=== PATIENT | male | born 1950 | race Caucasian/White ===

== ENCOUNTER 2017-08-12 01:57 | Inpatient (IN) ==
[2017-08-12] MEDS ORDERED: ACETAMINOPHEN 325 MG TABLET PO PRN (02:38)
[2017-08-12] MEDS ORDERED: ONDANSETRON 4 MG/2 ML VIAL IV PRN ×2 (02:38→13:31)
[2017-08-12] MEDS ORDERED: HYDROmorphone 2 MG/1 ML VIAL IV PRN (02:38)
[2017-08-12] MEDS ORDERED: ONDANSETRON 4 MG/2 ML VIAL ONE ×3 (03:47→13:37)
[2017-08-12] MEDS ORDERED: HYDROmorphone 2 MG/1 ML VIAL ONE ×2 (03:48→13:22)
[2017-08-12] MEDS: cefOXitin 2,000 MG in SYRINGE 1 EACH IV SCH ×3 (04:28→15:43)
[2017-08-12] MEDS: DEXTROSE 5% LACTATED RINGERS 1,000 ML IV SCH ×4 (04:35→23:14)
[2017-08-12 08:04] LABS: Basophils % 0.3 % (0.0-0.8); Eosinophils # 0.1 10*3/uL (0.0-0.87); Eosinophils % 1.2 % (0.00-10.9); Hemoglobin 10.7 GM/DL (14.0-18.0); Immature Granulocytes % 0.2 %; Immature Granulocytes Absolute 0.01 #; Lymphocytes # 1.3 10*3/uL (1.4-4.0); Lymphocytes % 21.5 % (21.2-54.2); Mean Corpuscular HGB Conc 31.5 GM/DL (32-36); Mean Corpuscular Hemoglobin 26 PG (27-34); Mean Platelet Volume 11.4 FL (9.6-12.0); Monocytes # 0.8 10*3/uL (0.11-0.8); Monocytes % 13.9 % (1.7-12.7); Neutrophils # 3.8 10*3/uL (1.4-7.4); Neutrophils % 62.9 % (38.7-73.9); Platelet Count 259 T/CUMM (130-400); Red Blood Count 4.05 MC/CUMM (3.8-5.5); Red Cell Distribution Width 17.2 % (9.3-17.3)
[2017-08-12 08:31] LABS: Band Neutrophils 5 % (0-10); Hypochromasia 1+; Lymphocytes 28 % (20-55); Microcytosis 1+; Platelet Estimate Normal; Segmented Neutrophils 61 % (50-85); Total Cells Counted 100
[2017-08-12 08:43] LABS: Calcium 8.5 MG/DL (8.5-10.1); Osmolality,Calculated 279.3 MOS/KG (273-304); Potassium 3.2 MMOL/L (3.5-5.1)
[2017-08-12] MEDS ORDERED: PANTOPRAZOLE 40 MG TABLET PO SCH (09:00)
[2017-08-12] MEDS: ENOXAPARIN 40 MG/0.4 ML SYRINGE SUBCUT SCH (09:04)
[2017-08-12] MEDS: PANTOPRAZOLE 40 MG VIAL IV SCH (09:04)
[2017-08-12] MEDS: HYDROmorphone 2 MG/1 ML VIAL IV PRN ×7 (09:05→21:00)
[2017-08-12] MEDS ORDERED: LIDOCAINE 2%/EPI 20 ML VIAL ONE (11:13)
[2017-08-12] MEDS ORDERED: SEVOFLURANE 1 UNIT/15 MINUTE INH ONE (13:37)
[2017-08-12] MEDS ORDERED: ETOMIDATE 40 MG/20 ML VIAL IV ONE (13:37)
[2017-08-12] MEDS ORDERED: LACTATED RINGERS 1,000 ML IV ONE ×2 (13:37→18:39)
[2017-08-12] MEDS ORDERED: fentaNYL 100 MCG/2 ML VIAL ONE (13:37)
[2017-08-12] MEDS ORDERED: MIDAZOLAM 2 MG/2 ML VIAL ONE (13:37)
[2017-08-12 13:43] LABS: Apearance,Urine CLEAR (Clear); Bilirubin,Urine Negative (Negative); Blood, Urine Negative (Negative); Glucose,Urine (UA) Negative (Negative); Ketones,Urine Negative (Negative); Nitrite,Urine Negative (Negative); Protein,Urine Negative; RBC,Urine <1 /HPF (0-4); Urine Color Yellow (Yellow); Urine Specific Gravity 1.013 (1.001-1.035); Urine Urobilinogen < 2.0 EU/DL (0.2-1.0); WBC,Urine <1 /HPF (0-6)
[2017-08-12] MEDS ORDERED: NEOSTIGMINE 10 MG/10 ML VIAL ONE (13:45)
[2017-08-12] MEDS ORDERED: MEPERIDINE 25 MG/1 ML VIAL ONE (14:10)
[2017-08-12] MEDS: MEPERIDINE 25 MG/1 ML VIAL IV PRN ×2 (14:10→15:42)
[2017-08-12 17:16] LABS: Hematocrit 39.5 VOL% (42.0-52.0); Hemoglobin 12.7 GM/DL (14.0-18.0)
[2017-08-12 17:50] LABS: Troponin I Only 0.029 NG/ML (0.00-0.045)
[2017-08-13] MEDS: HYDROmorphone 2 MG/1 ML VIAL IV PRN ×6 (01:15→21:14)
[2017-08-13] MEDS: cefOXitin 2,000 MG in SYRINGE 1 EACH IV SCH ×5 (04:15→21:18)
[2017-08-13] MEDS: DEXTROSE 5% LACTATED RINGERS 1,000 ML IV SCH ×3 (07:18→23:54)
[2017-08-13 08:29] LABS: Basophils % 0.4 % (0.0-0.8); Hematocrit 39.9 VOL% (42.0-52.0); Hemoglobin 12.8 GM/DL (14.0-18.0); Immature Granulocytes % 0.4 %; Immature Granulocytes Absolute 0.03 #; Lymphocytes # 0.9 10*3/uL (1.4-4.0); Lymphocytes % 13.2 % (21.2-54.2); Mean Corpuscular HGB Conc 32.1 GM/DL (32-36); Mean Corpuscular Hemoglobin 27 PG (27-34); Mean Corpuscular Volume 83.8 FL (87-102); Mean Platelet Volume 11.6 FL (9.6-12.0); Monocytes % 14.5 % (1.7-12.7); Neutrophils # 4.9 10*3/uL (1.4-7.4); Neutrophils % 71.5 % (38.7-73.9); Platelet Count 302 T/CUMM (130-400); Red Blood Count 4.76 MC/CUMM (3.8-5.5); Red Cell Distribution Width 17.7 % (9.3-17.3); White Blood Count 6.9 T/CUMM (4-12)
[2017-08-13 08:50] LABS: Band Neutrophils 13 % (0-10); Hypochromasia 1+; Lymphocytes 17 % (20-55); Microcytosis 1+; Segmented Neutrophils 56 % (50-85); Total Cells Counted 100
[2017-08-13 08:51] LABS: Ovalocytes Slight; Platelet Estimate Normal
[2017-08-13 08:56] LABS: Albumin 2.3 G/DL (3.4-5.0); Bilirubin,Total 1.2 MG/DL (0.2-1.0); Calcium 8.1 MG/DL (8.5-10.1); Osmolality,Calculated 280.3 MOS/KG (273-304); Potassium 4.1 MMOL/L (3.5-5.1); Total Protein 5.1 G/DL (6.4-8.3)
[2017-08-13] MEDS: ENOXAPARIN 40 MG/0.4 ML SYRINGE SUBCUT SCH (09:10)
[2017-08-13] MEDS: PANTOPRAZOLE 40 MG VIAL IV SCH (09:11)
[2017-08-14] MEDS: HYDROmorphone 2 MG/1 ML VIAL IV PRN ×5 (01:10→18:16)
[2017-08-14] MEDS: cefOXitin 2,000 MG in SYRINGE 1 EACH IV SCH ×4 (05:19→21:31)
[2017-08-14] MEDS: DEXTROSE 5% LACTATED RINGERS 1,000 ML IV SCH ×2 (09:00→11:30)
[2017-08-14] MEDS: ENOXAPARIN 40 MG/0.4 ML SYRINGE SUBCUT SCH ×2 (09:00→18:15)
[2017-08-14] MEDS: PANTOPRAZOLE 40 MG VIAL IV SCH (09:02)
[2017-08-14 09:10] LABS: Basophils % 0.2 % (0.0-0.8); Red Cell Distribution Width 17.3 % (9.3-17.3)
[2017-08-14 09:17] LABS: Eosinophils % 0.2 % (0.00-10.9); Hematocrit 33.1 VOL% (42.0-52.0); Immature Granulocytes % 0.4 %; Immature Granulocytes Absolute 0.03 #; Lymphocytes # 0.9 10*3/uL (1.4-4.0); Lymphocytes % 11.6 % (21.2-54.2); Mean Corpuscular HGB Conc 31.7 GM/DL (32-36); Mean Corpuscular Hemoglobin 27 PG (27-34); Mean Corpuscular Volume 84.9 FL (87-102); Monocytes # 0.9 10*3/uL (0.11-0.8); Monocytes % 11.4 % (1.7-12.7); Neutrophils # 6.1 10*3/uL (1.4-7.4); Neutrophils % 76.2 % (38.7-73.9)
[2017-08-14 09:18] LABS: Hemoglobin 10.5 GM/DL (14.0-18.0); Platelet Count 225 T/CUMM (130-400)
[2017-08-14 09:32] LABS: Band Neutrophils 7 % (0-10); Eosinophils 1 % (0-10); Hypochromasia 1+; Lymphocytes 16 % (20-55); Metamyelocytes 1 %; Segmented Neutrophils 72 % (50-85); Total Cells Counted 100
[2017-08-14 09:33] LABS: Microcytosis 1+; Ovalocytes Slight; Platelet Estimate Normal
[2017-08-14 09:37] LABS: Calcium 7.8 MG/DL (8.5-10.1); Osmolality,Calculated 279.3 MOS/KG (273-304); Potassium 2.9 MMOL/L (3.5-5.1)
[2017-08-15] MEDS: DEXTROSE 5% LACTATED RINGERS 1,000 ML IV SCH ×4 (01:09→17:08)
[2017-08-15] MEDS: cefOXitin 2,000 MG in SYRINGE 1 EACH IV SCH ×4 (03:22→21:18)
[2017-08-15] MEDS: ENOXAPARIN 40 MG/0.4 ML SYRINGE SUBCUT SCH (09:16)
[2017-08-15] MEDS: PANTOPRAZOLE 40 MG VIAL IV SCH (09:17)
[2017-08-15] MEDS: HYDROmorphone 2 MG/1 ML VIAL IV PRN ×3 (09:26→20:15)
[2017-08-16] MEDS: DEXTROSE 5% LACTATED RINGERS 1,000 ML IV SCH ×4 (00:46→21:22)
[2017-08-16] MEDS: cefOXitin 2,000 MG in SYRINGE 1 EACH IV SCH ×4 (03:38→21:12)
[2017-08-16] MEDS: PANTOPRAZOLE 40 MG VIAL IV SCH (09:09)
[2017-08-16] MEDS: ENOXAPARIN 40 MG/0.4 ML SYRINGE SUBCUT SCH (09:10)
[2017-08-16] MEDS: VALSARTAN/HCTZ 160-12.5 MG TABLET PO SCH (09:43)
[2017-08-16] MEDS: ATORVASTATIN 10 MG TABLET PO SCH (09:43)
[2017-08-16] MEDS: CARVEDILOL 12.5 MG TABLET PO SCH ×2 (09:43→21:11)
[2017-08-16] MEDS: POTASSIUM CHLORIDE 10 MEQ TABLET PO SCH (09:43)
[2017-08-16] MEDS: ZALEPLON 5 MG CAPSULE PO SCH (21:11)
[2017-08-17 02:21] LABS: Basophils % 0.2 % (0.0-0.8); Eosinophils # 0.2 10*3/uL (0.0-0.87); Eosinophils % 3.8 % (0.00-10.9); Hematocrit 30.3 VOL% (42.0-52.0); Hemoglobin 9.7 GM/DL (14.0-18.0); Immature Granulocytes Absolute 0.06 #; Lymphocytes # 0.9 10*3/uL (1.4-4.0); Lymphocytes % 14.2 % (21.2-54.2); Mean Corpuscular Hemoglobin 26 PG (27-34); Mean Corpuscular Volume 82.3 FL (87-102); Mean Platelet Volume 11.3 FL (9.6-12.0); Monocytes # 0.5 10*3/uL (0.11-0.8); Monocytes % 8.1 % (1.7-12.7); Neutrophils # 4.6 10*3/uL (1.4-7.4); Neutrophils % 72.7 % (38.7-73.9); Platelet Count 236 T/CUMM (130-400); Red Blood Count 3.68 MC/CUMM (3.8-5.5); Red Cell Distribution Width 16.8 % (9.3-17.3); White Blood Count 6.3 T/CUMM (4-12)
[2017-08-17 03:08] LABS: Calcium 8.1 MG/DL (8.5-10.1); Osmolality,Calculated 279.1 MOS/KG (273-304); Potassium 2.8 MMOL/L (3.5-5.1)
[2017-08-17 03:19] LABS: Anisocytosis 1+; Hypochromasia Slight; Platelet Estimate Normal
[2017-08-17] MEDS: cefOXitin 2,000 MG in SYRINGE 1 EACH IV SCH ×4 (03:58→21:45)
[2017-08-17] MEDS: VALSARTAN/HCTZ 160-12.5 MG TABLET PO SCH (08:39)
[2017-08-17] MEDS: ATORVASTATIN 10 MG TABLET PO SCH (08:40)
[2017-08-17] MEDS: ENOXAPARIN 40 MG/0.4 ML SYRINGE SUBCUT SCH (08:40)
[2017-08-17] MEDS: POTASSIUM CHLORIDE 10 MEQ TABLET PO SCH (08:40)
[2017-08-17] MEDS: CARVEDILOL 12.5 MG TABLET PO SCH ×2 (08:40→21:45)
[2017-08-17] MEDS: PANTOPRAZOLE 40 MG VIAL IV SCH (08:40)
[2017-08-17] MEDS ORDERED: POTASSIUM CHLORIDE RIDER 10 MEQ in PREMIX 1 EACH IV PRN (09:51)
[2017-08-17] MEDS ORDERED: POTASSIUM CHLORIDE INJ 50 MEQ in SODIUM CHLORIDE 0.9% 500 ML IV ONE (11:00)
[2017-08-17] MEDS: DEXTROSE 5% LACTATED RINGERS 1,000 ML IV SCH (16:51)
[2017-08-17] MEDS: ZALEPLON 5 MG CAPSULE PO SCH (21:45)
[2017-08-18] MEDS: cefOXitin 2,000 MG in SYRINGE 1 EACH IV SCH ×4 (04:13→21:02)
[2017-08-18] MEDS ORDERED: POTASSIUM CHLORIDE INJ 50 MEQ in SODIUM CHLORIDE 0.9% 500 ML IV ONE (08:30)
[2017-08-18] MEDS: CARVEDILOL 12.5 MG TABLET PO SCH ×2 (08:38→21:01)
[2017-08-18] MEDS: POTASSIUM CHLORIDE 10 MEQ TABLET PO SCH (08:38)
[2017-08-18] MEDS: ATORVASTATIN 10 MG TABLET PO SCH (08:38)
[2017-08-18] MEDS: ENOXAPARIN 40 MG/0.4 ML SYRINGE SUBCUT SCH (08:38)
[2017-08-18] MEDS: VALSARTAN/HCTZ 160-12.5 MG TABLET PO SCH (08:38)
[2017-08-18] MEDS: PANTOPRAZOLE 40 MG VIAL IV SCH (08:39)
[2017-08-18 12:01] LABS: 5-Hydroxyindoleacetic Acid, U 14 mg/24 h (<=8.0)
[2017-08-18] MEDS: DEXTROSE 5% LACTATED RINGERS 1,000 ML IV SCH (20:01)
[2017-08-18] MEDS: ZALEPLON 5 MG CAPSULE PO SCH (21:01)
[2017-08-19] MEDS: cefOXitin 2,000 MG in SYRINGE 1 EACH IV SCH ×4 (03:34→20:45)
[2017-08-19] MEDS ORDERED: MAGNESIUM SULF RIDER 4 GM in PREMIX 1 EACH IV PRN (09:19)
[2017-08-19] MEDS ORDERED: MAGNESIUM SULF RIDER 2 GM in PREMIX 1 EACH IV PRN (09:19)
[2017-08-19] MEDS: CARVEDILOL 12.5 MG TABLET PO SCH ×2 (09:24→20:45)
[2017-08-19] MEDS: POTASSIUM CHLORIDE 10 MEQ TABLET PO SCH (09:24)
[2017-08-19] MEDS: POTASSIUM CHLORIDE 20 MEQ TABLET PO PRN ×4 (09:24→14:57)
[2017-08-19] MEDS: ATORVASTATIN 10 MG TABLET PO SCH (09:24)
[2017-08-19] MEDS: PANTOPRAZOLE 40 MG VIAL IV SCH (09:25)
[2017-08-19] MEDS: VALSARTAN/HCTZ 160-12.5 MG TABLET PO SCH (09:27)
[2017-08-19] MEDS: ENOXAPARIN 40 MG/0.4 ML SYRINGE SUBCUT SCH (09:28)
[2017-08-19] MEDS: DEXTROSE 5% LACTATED RINGERS 1,000 ML IV SCH (16:26)
[2017-08-19] MEDS: ZALEPLON 5 MG CAPSULE PO SCH (20:45)
[2017-08-20] MEDS: DEXTROSE 5% LACTATED RINGERS 1,000 ML IV SCH (03:45)
[2017-08-20] MEDS: cefOXitin 2,000 MG in SYRINGE 1 EACH IV SCH ×3 (03:50→15:18)
[2017-08-20 05:55] LABS: Calcium 7.9 MG/DL (8.5-10.1); Potassium 3.6 MMOL/L (3.5-5.1)
[2017-08-20] MEDS: VALSARTAN/HCTZ 160-12.5 MG TABLET PO SCH (09:05)
[2017-08-20] MEDS: ATORVASTATIN 10 MG TABLET PO SCH (09:05)
[2017-08-20] MEDS: POTASSIUM CHLORIDE 20 MEQ TABLET PO PRN (09:06)
[2017-08-20] MEDS: PANTOPRAZOLE 40 MG VIAL IV SCH (09:06)
[2017-08-20] MEDS: ENOXAPARIN 40 MG/0.4 ML SYRINGE SUBCUT SCH (09:07)
[2017-08-20] MEDS: POTASSIUM CHLORIDE 10 MEQ TABLET PO SCH (11:26)
[2017-08-20] MEDS: CARVEDILOL 12.5 MG TABLET PO SCH (11:26)
[2017-08-20 11:56] VITALS: BP 128/83
== END 2017-08-20 16:15 | disposition home or self-care (01) | DRG 330 ==
LOC: EDUNIT# → EDBD → N.ED 01:57 → N.EDINP 02:38 → N.3E 03:04 → N.TELES 19:38
PROVIDERS: ADMIT Surgery; ATTEND Surgery

== ENCOUNTER 2021-12-13 05:46 | Inpatient (IN) ==
[2021-12-13] MEDS ORDERED: CLINDAMYCIN INJ 900 MG/50 ML PREMIX IV ONE (06:30)
[2021-12-13] MEDS ORDERED: LACTATED RINGERS 1,000 ML IV SCH (08:30)
[2021-12-13] MEDS ORDERED: OCTREOTIDE 500 MCG in SODIUM CHLORIDE 0.9% 100 ML IV ONE (08:30)
[2021-12-13] MEDS ORDERED: SUCCINYLCHOLINE 200 MG/10 ML VIAL ONE (11:19)
[2021-12-13] MEDS ORDERED: propofoL 200 MG/20 ML VIAL IV ONE (11:19)
[2021-12-13] MEDS ORDERED: fentaNYL 250 MCG/5 ML VIAL ONE (11:19)
[2021-12-13] MEDS ORDERED: LIDOCAINE 2% 5 ML VIAL ONE (11:19)
[2021-12-13] MEDS ORDERED: MIDAZOLAM 2 MG/2 ML VIAL ONE (11:19)
[2021-12-13] MEDS ORDERED: ROCURONIUM 50 MG/5 ML VIAL IV ONE (11:19)
[2021-12-13] MEDS ORDERED: BUPIVACAINE MPF 0.25% 30 ML VIAL ONE (11:25)
[2021-12-13] MEDS ORDERED: DEXAMETHASONE 4 MG/1 ML VIAL ONE (11:26)
[2021-12-13] MEDS ORDERED: ePHEDrine 50 MG/ML VIAL ONE (12:43)
[2021-12-13] MEDS ORDERED: LACTATED RINGERS 1,000 ML IV ONE (13:03)
[2021-12-13] MEDS ORDERED: TISSUE ADHESIVE 1 EACH APPLICATOR TOP ONE (13:06)
[2021-12-13] MEDS ORDERED: GLYCOPYRROLATE 0.4 MG/2 ML VIAL ONE (13:56)
[2021-12-13] MEDS ORDERED: NEOSTIGMINE 10 MG/10 ML VIAL ONE (13:57)
[2021-12-13] MEDS ORDERED: ACETAMINOPHEN 325 MG TABLET PO PRN (14:21)
[2021-12-13 14:43] LABS: Bilirubin,Urine Small mg/dL (Negative); Blood, Urine Negative (Negative); Glucose,Urine (UA) Negative (Negative); Ketones,Urine Negative (Negative); Nitrite,Urine Negative (Negative); Protein,Urine 30 mg/dL (Negative); Urine Appearance Clear (Clear); Urine Color Yellow (Yellow); Urine Specific Gravity 1.025 (1.001-1.035)
[2021-12-13 14:45] LABS: Hyaline Casts,Urine 1 /LPF (0-3)
[2021-12-13] MEDS ORDERED: ONDANSETRON 4 MG/2 ML VIAL ONE (14:48)
[2021-12-13] MEDS ORDERED: ONDANSETRON 4 MG/2 ML VIAL IV PRN (14:49)
[2021-12-13] MEDS: HYDROmorphone 1 MG/1 ML SYRINGE IV PRN ×7 (14:50→22:59)
[2021-12-13] MEDS: DEXTROSE 5% LACTATED RINGERS 1,000 ML IV SCH (18:00)
[2021-12-14] MEDS: DEXTROSE 5% LACTATED RINGERS 1,000 ML IV SCH ×3 (01:31→17:05)
[2021-12-14] MEDS: HYDROmorphone 1 MG/1 ML SYRINGE IV PRN ×6 (05:22→20:23)
[2021-12-14 05:26] LABS: Basophils % 0.1 % (0.0-0.8); Hematocrit 35.2 VOL% (42.0-52.0); Hemoglobin 11.9 GM/DL (14.0-18.0); Immature Granulocytes % 0.5 %; Immature Granulocytes Absolute 0.07 #; Lymphocytes # 0.4 10*3/uL (1.4-4.0); Lymphocytes % 2.9 % (21.2-54.2); Mean Corpuscular HGB Conc 33.8 GM/DL (32-36); Mean Corpuscular Volume 96.4 FL (87-102); Mean Platelet Volume 10.9 FL (9.6-12.0); Monocytes # 0.9 10*3/uL (0.11-0.8); Monocytes % 6.1 % (1.7-12.7); Neutrophils % 90.4 % (38.7-73.9); Platelet Count 177 T/CUMM (130-400); Red Blood Count 3.65 MC/CUMM (3.8-5.5); Red Cell Distribution Width 12.7 % (9.3-17.3); White Blood Count 14.6 T/CUMM (4-12)
[2021-12-14 05:45] LABS: Calcium 8.3 MG/DL (8.5-10.1); Osmolality,Calculated 285.1 MOS/KG (273-304); Potassium 3.8 MMOL/L (3.5-5.1)
[2021-12-14 05:49] LABS: Band Neutrophils 2 % (0-10); Platelet Estimate Adequate; Total Cells Counted 100
[2021-12-14] MEDS: PANTOPRAZOLE 40 MG TABLET PO SCH (08:23)
[2021-12-14] MEDS: ENOXAPARIN 40 MG/0.4 ML SYRINGE SUBCUT SCH (17:03)
[2021-12-14] MEDS: carvediloL 25 MG TABLET PO SCH (17:04)
[2021-12-15] MEDS: HYDROmorphone 1 MG/1 ML SYRINGE IV PRN ×6 (00:19→23:06)
[2021-12-15] MEDS: DEXTROSE 5% LACTATED RINGERS 1,000 ML IV SCH ×3 (00:20→20:04)
[2021-12-15 08:37] LABS: Basophils % 0.1 % (0.0-0.8); Eosinophils # 0.1 10*3/uL (0.0-0.87); Eosinophils % 0.5 % (0.00-10.9); Hematocrit 31.8 VOL% (42.0-52.0); Hemoglobin 10.5 GM/DL (14.0-18.0); Immature Granulocytes % 0.6 %; Immature Granulocytes Absolute 0.06 #; Lymphocytes # 0.4 10*3/uL (1.4-4.0); Lymphocytes % 4.1 % (21.2-54.2); Mean Corpuscular Volume 97.5 FL (87-102); Mean Platelet Volume 10.2 FL (9.6-12.0); Monocytes # 0.9 10*3/uL (0.11-0.8); Monocytes % 9.1 % (1.7-12.7); Neutrophils % 85.6 % (38.7-73.9); Platelet Count 153 T/CUMM (130-400); Red Blood Count 3.26 MC/CUMM (3.8-5.5); Red Cell Distribution Width 12.7 % (9.3-17.3)
[2021-12-15 08:56] LABS: Calcium 8.1 MG/DL (8.5-10.1); Osmolality,Calculated 281.3 MOS/KG (273-304); Potassium 3.5 MMOL/L (3.5-5.1)
[2021-12-15 08:57] LABS: Band Neutrophils 2 % (0-10); Eosinophils 1 % (0-10); Lymphocytes 6 % (20-55); Total Cells Counted 100
[2021-12-15 08:58] LABS: Macrocytosis Slight
[2021-12-15] MEDS ORDERED: MAGNESIUM SULF RIDER 2 GM/50 ML PREMIX IV PRN ×2 (09:22→10:06)
[2021-12-15] MEDS: carvediloL 25 MG TABLET PO SCH ×2 (09:29→17:15)
[2021-12-15] MEDS: POTASSIUM CHLORIDE 20 MEQ TABLET PO SCH (09:29)
[2021-12-15] MEDS: PANTOPRAZOLE 40 MG TABLET PO SCH (09:29)
[2021-12-15] MEDS: FUROSEMIDE 20 MG TABLET PO SCH (09:29)
[2021-12-15] MEDS ORDERED: MAGNESIUM SULF RIDER 4 GM/100 ML PREMIX IV PRN (10:06)
[2021-12-15] MEDS: ENOXAPARIN 40 MG/0.4 ML SYRINGE SUBCUT SCH (17:15)
[2021-12-15] MEDS: ZALEPLON 5 MG CAPSULE PO SCH (23:05)
[2021-12-16] MEDS: DEXTROSE 5% LACTATED RINGERS 1,000 ML IV SCH ×2 (00:58→15:46)
[2021-12-16] MEDS: POTASSIUM CHLORIDE 20 MEQ TABLET PO SCH (08:23)
[2021-12-16] MEDS: carvediloL 25 MG TABLET PO SCH ×2 (08:23→16:46)
[2021-12-16] MEDS: PANTOPRAZOLE 40 MG TABLET PO SCH (08:24)
[2021-12-16] MEDS: FUROSEMIDE 20 MG TABLET PO SCH (08:24)
[2021-12-16] MEDS: HYDROmorphone 1 MG/1 ML SYRINGE IV PRN ×3 (08:25→19:36)
[2021-12-16] MEDS: ENOXAPARIN 40 MG/0.4 ML SYRINGE SUBCUT SCH ×2 (16:47→17:58)
[2021-12-16] MEDS ORDERED: ONDANSETRON 4 MG/2 ML VIAL IV PRN (18:46)
[2021-12-16] MEDS: ZALEPLON 5 MG CAPSULE PO SCH (21:42)
[2021-12-17] MEDS: DEXTROSE 5% LACTATED RINGERS 1,000 ML IV SCH (01:04)
[2021-12-17] MEDS: HYDROmorphone 1 MG/1 ML SYRINGE IV PRN (07:25)
[2021-12-17] MEDS: carvediloL 25 MG TABLET PO SCH ×2 (09:16→16:39)
[2021-12-17] MEDS: POTASSIUM CHLORIDE 20 MEQ TABLET PO SCH (09:16)
[2021-12-17] MEDS: FUROSEMIDE 20 MG TABLET PO SCH (09:16)
[2021-12-17] MEDS: PANTOPRAZOLE 40 MG TABLET PO SCH (09:16)
[2021-12-17] MEDS: ENOXAPARIN 40 MG/0.4 ML SYRINGE SUBCUT SCH (17:08)
[2021-12-17] MEDS: ZALEPLON 5 MG CAPSULE PO SCH (20:16)
[2021-12-18] MEDS: DEXTROSE 5% LACTATED RINGERS 1,000 ML IV SCH ×4 (03:16→21:20)
[2021-12-18] MEDS: carvediloL 25 MG TABLET PO SCH ×2 (09:21→17:37)
[2021-12-18] MEDS: FUROSEMIDE 20 MG TABLET PO SCH (09:22)
[2021-12-18] MEDS: PANTOPRAZOLE 40 MG TABLET PO SCH (09:22)
[2021-12-18] MEDS: HYDROmorphone 1 MG/1 ML SYRINGE IV PRN (09:22)
[2021-12-18 10:40] LABS: Basophils % 0.1 % (0.0-0.8); Eosinophils # 0.2 10*3/uL (0.0-0.87); Eosinophils % 2.4 % (0.00-10.9); Hematocrit 28.7 VOL% (42.0-52.0); Hemoglobin 9.8 GM/DL (14.0-18.0); Immature Granulocytes % 0.6 %; Immature Granulocytes Absolute 0.05 #; Lymphocytes # 0.4 10*3/uL (1.4-4.0); Lymphocytes % 5.4 % (21.2-54.2); Mean Corpuscular HGB Conc 34.1 GM/DL (32-36); Mean Corpuscular Volume 94.4 FL (87-102); Mean Platelet Volume 10.1 FL (9.6-12.0); Monocytes # 0.9 10*3/uL (0.11-0.8); Monocytes % 10.7 % (1.7-12.7); Neutrophils % 80.8 % (38.7-73.9); Platelet Count 165 T/CUMM (130-400); Red Blood Count 3.04 MC/CUMM (3.8-5.5); Red Cell Distribution Width 12.2 % (9.3-17.3)
[2021-12-18] MEDS: POTASSIUM CHLORIDE 20 MEQ TABLET PO SCH (10:55)
[2021-12-18 10:57] LABS: Calcium 8.4 MG/DL (8.5-10.1); Osmolality,Calculated 273.7 MOS/KG (273-304); Potassium 3.3 MMOL/L (3.5-5.1)
[2021-12-18 10:59] LABS: Eosinophils 2 % (0-10); Lymphocytes 6 % (20-55); Platelet Estimate Adequate; Total Cells Counted 100
[2021-12-18] MEDS ORDERED: BISACODYL 10 MG SUPP RECTAL ONE (11:44)
[2021-12-18] MEDS: PIPERACILLIN/TAZOBACTAM 3,375 MG in SODIUM CHLORIDE 0.9% 100 ML IV SCH ×2 (12:53→21:19)
[2021-12-18] MEDS: ENOXAPARIN 40 MG/0.4 ML SYRINGE SUBCUT SCH (17:37)
[2021-12-18] MEDS: ZALEPLON 5 MG CAPSULE PO SCH (21:19)
[2021-12-19] MEDS: DEXTROSE 5% LACTATED RINGERS 1,000 ML IV SCH ×2 (03:29→12:17)
[2021-12-19] MEDS: PIPERACILLIN/TAZOBACTAM 3,375 MG in SODIUM CHLORIDE 0.9% 100 ML IV SCH ×3 (05:09→20:37)
[2021-12-19] MEDS: PANTOPRAZOLE 40 MG TABLET PO SCH (08:13)
[2021-12-19] MEDS: carvediloL 25 MG TABLET PO SCH ×2 (08:13→17:08)
[2021-12-19] MEDS: POTASSIUM CHLORIDE 20 MEQ TABLET PO SCH (08:13)
[2021-12-19] MEDS: FUROSEMIDE 20 MG TABLET PO SCH (08:13)
[2021-12-19] MEDS: ENOXAPARIN 40 MG/0.4 ML SYRINGE SUBCUT SCH (17:08)
[2021-12-19] MEDS: ZALEPLON 5 MG CAPSULE PO SCH (20:38)
[2021-12-20] MEDS: PIPERACILLIN/TAZOBACTAM 3,375 MG in SODIUM CHLORIDE 0.9% 100 ML IV SCH ×2 (04:09→12:15)
[2021-12-20] MEDS: carvediloL 25 MG TABLET PO SCH (08:37)
[2021-12-20] MEDS: POTASSIUM CHLORIDE 20 MEQ TABLET PO SCH (08:37)
[2021-12-20] MEDS: PANTOPRAZOLE 40 MG TABLET PO SCH (08:38)
[2021-12-20] MEDS: FUROSEMIDE 20 MG TABLET PO SCH (08:38)
[2021-12-20 12:19] VITALS: BP 119/62
== END 2021-12-20 15:22 | disposition home or self-care (01) | DRG 331 ==
LOC: N.OR 05:46 → N.SDSINP 05:48 → N.3E 14:21
PROVIDERS: ADMIT Student in an Organized Health Care Education/Training Program; ATTEND Student in an Organized Health Care Education/Training Program